=== PATIENT | male | born 1985 | race African-American/Black ===

== ENCOUNTER 2024-12-26 06:50 | Emergency (ER) | payer OTHER, MEDICAID ==
[~2024-12-26] VITALS: Ht 182.9 cm; Wt 115.0 kg
[2024-12-26 06:58] VITALS: O2SAT 96
[2024-12-26] MEDS: LIDOCAINE HCL/EPINEPHRINE 1%-EPI 1:100,000 20ML VIAL INFIL ONE (09:27)
[2024-12-26] MEDS: BUPIVACAINE HCL/PF 0.5% (5MG/ML) 10ML INFIL ONE (09:43)
[2024-12-26] MEDS: LIDOCAINE/PRILOCAINE CREAM 5 GM TUBE TOP ONE (09:43)
[2024-12-26] MEDS ORDERED: HYDR26CR2 TP (09:54)
[2024-12-26] MEDS ORDERED: HYDR30CR80 TP (09:54)
[2024-12-26] MEDS ORDERED: LIDO35.421 TP (09:54)
[2024-12-26] MEDS ORDERED: METR-167 MT (12:55)
[2024-12-26] MEDS ORDERED: CIPR-494 MT (12:55)
[2024-12-26 13:14] VITALS: BP 120/68; PULSE 77; RESP 16; TEMP 36.7; O2SAT 98
== END 2024-12-26 13:12 | disposition home or self-care (01) ==
LOC: ER 06:50
DX: K64.5 Perianal venous thrombosis (principal); K61.0 Anal abscess; Z79.899 Other long term (current) drug therapy
CPT/HCPCS: 46050; 99284; J0665; J2004